=== PATIENT | female | born 2000 ===

== ENCOUNTER 2019-08-17 19:20 | Emergency (ER) | payer SELFPAY ==
--- NOTE | 2019-08-17 21:21 | Event Note ---
ED Screening Note Date of service: 08/17/19 Time: 21:19 ED Screening Note: This is a 19 y.o. F. that presents to the ER with sore throat and congestion for several days. Taking OTC cold and flu medication with minimal improvement. This initial assessment/diagnostic orders/clinical plan/treatment(s) is/are subject to change based on patients health status, clinical progression and re- assessment by fellow clinical providers in the ED. Further treatment and workup at subsequent clinical providers discretion. Patient/guardian urged not to elope from the ED as their condition may be serious if not clinically assessed and managed. Initial orders include: Rapid flu
[2019-08-17] MEDS ORDERED: LIDOCAINE VISCOUS 2% 15 ML ORAL LIQD PO ONE (23:03)
[2019-08-17] MEDS ORDERED: dexAMETHasone 20 MG/5 ML VIAL IM ONE (23:03)
[2019-08-17] MEDS ORDERED: IBUPROFEN 800 MG TAB PO ONE (23:03)
--- NOTE | 2019-08-17 23:09 | Emergency Department Report ---
HPI - General Chief Complaint: Sore Throat Time Seen by Provider: 08/17/19 21:15 - HPI HPI: Room 19 The pt is a 19 y/o F p/w a cc or sore throat. The pt states she's had a sore throat x 2-3 days. pt admits to a nonproductive cough and rhinnorhea but denies fever. 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 - Family History Family history: no significant - Social History Smoking Status: Never Smoker Substance Use Type: None - Medications Home Medications: Home Medications Medication Instructions Recorded Confirmed Last Taken Type Amoxicillin [Amoxicillin 250 MG/5 10 ml PO BID #200 ml 08/17/19 Unknown Rx Ml] HYDROcodone/APAP 7.5-325 [Mcroberts] 15 ml PO Q4HR PRN #150 ml 08/17/19 Unknown Rx Ibuprofen [Motrin 800 MG tab] 800 mg PO Q8HR PRN #20 tablet 08/17/19 Unknown Rx ED Review of Systems ROS: Stated complaint: SORE THROAT Other details as noted in HPI Constitutional: denies: fever Eyes: denies: eye pain ENT: throat pain Respiratory: cough Cardiovascular: denies: chest pain Endocrine: no symptoms reported Gastrointestinal: denies: abdominal pain Genitourinary: denies: dysuria Musculoskeletal: denies: back pain Neurological: denies: headache Physical Exam - Physical Exam Vital Signs: Vital Signs 08/17/19 21:19 Temperature 98.9 F Pulse Rate 70 Respiratory 18 Rate Blood Pressure 123/83 O2 Sat by Pulse 99 Oximetry Physical Exam: GEN: WD WN F lying on stretcher in NAD HEENT: EOMI. 3+ tonsils bilat. uvula midline NECK: Trachea midline. no stridor LUNGS: No resp Distress CV: RRR no m/r/g SKIN: No Diaphoresis NEURO: GCS 15 MS: no evidence of acute injury ED Course Vital Signs 08/17/19 21:19 Temperature 98.9 F Pulse Rate 70 Respiratory 18 Rate Blood Pressure 123/83 O2 Sat by Pulse 99 Oximetry ED Medical Decision Making - Differential Diagnosis tonsilitis Critical care attestation.: If time is entered above; I have spent that time in minutes in the direct care of this critically ill patient, excluding procedure time. ED Disposition Clinical Impression: Acute bacterial tonsillitis, Sore throat Disposition: DC- TO HOME OR SELFCARE Is pt being admited?: No Does the pt Need Aspirin: No Condition: Stable Instructions: Tonsillitis (ED) Prescriptions: Amoxicillin [Amoxicillin 250 MG/5 Ml] 10 ml PO BID #200 ml Ibuprofen [Motrin 800 MG tab] 800 mg PO Q8HR PRN #20 tablet PRN Reason: Pain, Moderate (4-6) HYDROcodone/APAP 7.5-325 [[place]roberts] 15 ml PO Q4HR PRN #150 ml PRN Reason: Pain Referrals: VANCE BLEDSOE MD [Staff Physician] - 3-5 Days (Dr Bledsoe is an ENT. Please foloow up with her for further evaluation) Time of Disposition: 23:10
[2019-08-17 23:11] VITALS: BP 134/74
== END 2019-08-18 00:04 | disposition home or self-care (01) ==
LOC: ED 19:20
DX: J03.80 Acute tonsillitis due to other specified organisms (principal); B96.89 Other specified bacterial agents as the cause of diseases classified elsewhere; J02.9 Acute pharyngitis, unspecified
CPT/HCPCS: 87116; 87430; 96372; 99283; J1100